=== PATIENT | female | born 1965 | race Caucasian/White ===

== ENCOUNTER → 2017-11-05 14:15 | Outpatient (CLI) | payer OTHER, SELFPAY ==
[2017-11-05 17:00] LABS: Absolute Lymphocyte Count 1.21 X10^3/ul (0.83-4.51); Absolute Neutrophil Count 2.3 X10^3/uL (2.0-7.7); Basophil# 0.02 X10^3/uL; Basophil% 0.5 % (0-1); Eosinophil# 0.19 X10^3/uL; Eosinophils% 4.8 % (0-5); Hematocrit 38.9 % (37-47); Hemoglobin 13.1 g/dl (12.0-15.0); Lymphocyte # 1.21 X10^3/ul (4.0); Lymphocyte % 30.4 % (19-41); Mean Corp Hgb Conc 33.7 g/gl (32-36); Mean Corpuscular Hgb 29.5 pg (27.0-32.0); Mean Corpuscular Volume 87.6 fL (81-99); Mean Platelet Vol. 10.4 fl (6.2-12.0); Monocyte# 0.26 X10^3/uL; Monocyte% 6.5 % (0-10); Neutrophil # 2.29 X10^3/uL (2.7-7.7); Neutrophil % 57.5 % (47-70); POSITIVE COUNT NO; POSITIVE DIFFERENTIAL NO; POSITIVE MORPHOLOGY NO; Platelet Count 242 K/mm3 (150-450); RBC Distribution Width CV 13.8 % (11.6-14.6); RBC Distribution Width SD 44.3 fl (35.1-43.9); Red Blood Count 4.44 M/mm3 (4.2-5.4)
[2017-11-05 17:06] LABS: AST(SGOT) 19 U/L (15-37); Alanine Aminotransfer ALT/SGPT 26 U/L (13-56); Albumin, Serum 3.6 g/dL (3.2-5.0); Alkaline Phosphatase 57 U/L (45-117); Anion Gap 9 (5-15); BUN 13 mg/dL (7-18); BUN/Creat Ratio 17.4 RATIO (10-20); Calcium,Total 8.6 mg/dL (8.5-10.1); Chloride 104 mmol/L (98-107); Creatinine, Serum 0.75 mg/dL (0.55-1.02); EST Glomerular Filtration Rate 87 mL/min (>60); Est Glom Filt Rate - Afr Amer 106 mL/min (>60); Globulin 3.5 g/dL (2.2-4.2); Glucose 123 mg/dL (74-106); Potassium 3.7 mmol/L (3.5-5.1); Protein, Total 7.1 g/dL (6.4-8.2); Sodium Level 142 mmol/L (136-145)
[2017-11-06 08:31] LABS: Vitamin D,25 Hydroxy 41.1 ng/mL (29.95-100.01)
== END ==
PROVIDERS: Visit Provider Family Medicine Geriatric Medicine
DX: E55.9 Vitamin D deficiency, unspecified (principal); R53.83 Other fatigue
CPT/HCPCS: 36415; 80053; 82306; 84443; 85025

== ENCOUNTER → 2017-11-12 09:15 | Outpatient (CLI) | payer OTHER, SELFPAY ==
--- NOTE | 2017-11-12 09:23 | US_ITS ---
STUDY: ABDOMINAL ULTRASOUND - RIGHT UPPER QUADRANT REASON FOR VISIT: Female, 52 years old. Right upper quadrant pain especially after fatty meals. TECHNIQUE: Ultrasound evaluation of the right upper quadrant was performed with real-time and static wood-scale imaging. TECHNICAL QUALITY: Adequate. COMPARISON: None. FINDINGS: Liver: The liver measures 16.5 cm. There is normal echogenicity of the liver. The bile ducts are within normal limits. There is hepatic color flow. The direction of portal flow is hepatopetal. There is no demonstrated mass lesion. Gallbladder: Normal distended gallbladder. The gallbladder wall measures 1.9 mm. Normal. There is a negative sonographic Gray's sign. There appears to be very minimal fluid adjacent to the gallbladder. There are no gallstones. Tiny gallbladder wall polyp measuring approximately 2.6 mm. Common Bile Duct (C.B.D.): The common bile duct measures 2.1 mm. Pancreas: Normal size of the head, body and tail of the pancreas. There is normal echogenicity of the pancreas. There is no demonstrated pancreatic mass or cyst. Right Kidney: Normal size of the right kidney. The right kidney measures 10.8 cm. Normal renal cortex. The right cortex measures 1.5 cm. There is no demonstrated renal mass or cyst. There is very slight ectasia of the right renal pelvis and proximal ureter. Nonspecific. US/Abdomen Limited IMPRESSION: Small gallbladder wall polyp. There appears to be very minimal pericholecystic fluid. There is no gallbladder wall thickening and the sonographic Gray sign is negative. Acute cholecystitis is not suspected. These features may reflect mild chronic cholecystitis. Normal intrahepatic biliary tree and common bile duct. Mild ectasia of the right renal pelvis and proximal ureter is nonspecific. This may merely reflect urine bolus at the time of the study. There is no visible urinary calculus. Electronically Signed: Evgeny Dowell, at 11:54 EDT Tel , Service support ,
== END ==
PROVIDERS: Family Provider Family Medicine Geriatric Medicine; PCP Family Medicine Geriatric Medicine; Visit Provider Family Medicine Geriatric Medicine
DX: R10.9 Unspecified abdominal pain (principal)
CPT/HCPCS: 76705

== ENCOUNTER 2017-12-01 06:40 | Day surgery (SDC) | payer SELFPAY, OTHER ==
[2017-12-01] VITALS (9 sets, daily range): BP systolic 118–131; BP diastolic 65–81; PULSE 65–77; RESP 14–16; TEMP 36.1–36.6; O2SAT 93–95; BMI 31.0
--- NOTE | 2017-12-01 06:56 | EKG12_ITS ---
Test Reason : PRE OP Blood Pressure : / mmHG Vent. Rate : 064 BPM Atrial Rate : 064 BPM P-R Int : 170 ms QRS Dur : 094 ms QT Int : 398 ms P-R-T Axes : 015 017 003 degrees QTc Int : 410 ms Normal sinus rhythm Normal ECG Confirmed by KALINA DIXON, LORRIE ([id number]), book or script editor PRIYA REID ([id number]) on 12/03/2017 2:35:25 PM Referred By: Glen Asher Confirmed By:LORRIE GILMAN MD
--- NOTE | 2017-12-01 07:30 | RAD_ITS ---
CLINICAL HISTORY: Female, 52 years old. Right upper quadrant pain. PROCEDURE: CHOLANGIOGRAM - INTRAOPERATIVE Placement of the catheter and the procedure were performed by: Surgeon Glen Asher M.D. TECHNIQUE: Fluoroscopy was provided by Department of Radiology with supervision, direction review of the surgeon, who was present in the room time of the procedure. Radiologist Not present intraoperatively. FLUOROSCOPY TIME (if supplied): (0:12) Dose: 3.67 mGy IMAGES: 56 (cine imaging) FINDINGS: Imaging shows identified contrast filling the cystic duct and partially filling the biliary system and duodenum without obvious filling defect to suggest choledocholithiasis or extravasation of contrast noted. Normal appearing tapering with smooth margins is seen of the distal CBD to the ampulla. No filling of the pancreatic duct is seen. Please see Surgeon's operative note for details. RAD/Cholangiogram/ O R,Initial IMPRESSION: Please see Surgeon's operative note for details. Electronically Signed: Rachid Jacob, at 8:44 EDT Tel , Service support ,
--- NOTE | 2017-12-01 08:00 | GALL_PTH ---
PATIENT: NOAM LANDIS LOC: [facility] [place] U#:[id number] AGE/SX: 52/F ROOM: RE12/01/[address]: Dr. Glen Asher MD : [id number] BED: DIS: 12/01/2017 SPEC #: [id number] RECD: 12/01/17 10:14 STATUS: RUBI DAYSI #: [id number] MANSOOR: 12/01/17 08:[address]: Glen Asher DEPT: SURGICAL PATHOLOGY RECD BY: Evgeny Solis ENTERED: 12/01/17 13:30 SP TYPE: DEANNA ORLANDO DR: Dr. Jasen Kaur MD Tissues: Gallbladder, NOS Procedures: Surgery Specimen Level III HEADER OPERATION: Laparoscopic cholecystectomy with IOC PRE-OP DIAGNOSIS: Biliary colic TISSUE SUBMITTED: Gallbladder MICROSCOPIC DIAGNOSIS Gallbladder, cholecystectomy: Chronic cholecystitis. AM:ana cristina 12/02/17 MICROSCOPIC DESCRIPTION Slides are reviewed. GROSS DESCRIPTION Received is one container labeled with the patient's name and designated gallbladder. The specimen consists of a gallbladder measuring 8.5 cm in length and up to 3.5 cm in diameter. The external surface is pink-cazares, smooth and glistening for the most part. Focally it is granular, hemorrhagic and contains cautery artifact. The gallbladder contains green-yellow mucoid bile. No stones are identified in the container or in the gallbladder. The mucosa is bile-stained and without any mass lesions. The gallbladder wall measures up to 0.2 cm in thickness. [employer] sections from the gallbladder and the cystic duct are submitted in one cassette. / SJ:rg 12/01/17 TC:3 CPT: 53063
--- NOTE | 2017-12-01 08:00 | DCINST_ITS ---
Discharge Diet: Light diet - advance as tolerated Discharge Activity: Return to Normal Activity, May Not Drive - for 2-3 days or while taking narcotic pain medicataions., - - Do not drive, work heavy equipment or sign legal documents for 24 hours. May shower in (days): 1 - with the bandage in place. Additional Activity Instructions:: Pain medication may cause nausea. You should typically eat light foods as you take your pain medications. Pain medication may also cause constipation. If this is a problem for you, please discuss with your doctor. Call your doctor if your incision/area has: Continuous Slow Oozing, Sudden Increased Bleeding, Increased Pain/ Swelling, Increased Redness, Foul Smelling Discharge, Fever of 101 or Higher Call your doctor if you observe: Fever of 101 or Higher Suture Line Care: Avoid Pulling/Pushing, Avoid Pinching/Bending Additional Dressing/Incision Instructions:: Leave operative bandaids on for 2 days. When you remove dressing, leave Steri-Strips on until your follow-up appointment, or until the Steri-Strips fall off on their own. Allergies/Adverse Reactions: Allergies No Known Allergies Allergy (Unverified 11/25/17 09:26) Medications to take at Discharge Calcium Carbonate [Calcium] 600 mg PO DAILY 11/30/17 Multivitamin [Multiple Vitamins] 1 each PO DAILY 11/30/17 Vitamin B Complex 1 each PO DAILY 11/30/17 traMADol [Ultram] 50 mg PO Q4H PRN PRN 4 Days #20 tablet 12/01/17 The following prescriptions were given: traMADol [Ultram] 50 mg PO Q4H PRN PRN 4 Days #20 tablet PRN Reason: Pain Primary Care Physician: Jasen Kaur Chi, MD [Primary Care Provider] - Test Results: Test results from this visit will be discussed in further detail at your follow- up appointment, if applicable. Please Follow Up With: Glen Asher MD When: Please call to schedule 2 week follow up appointment. [phone]
[2017-12-01] MEDS: Bupiv/Epi 0.5% Mpf 30 ML Vial (09:09)
--- NOTE | 2017-12-01 09:13 | OP.PCM_ITS ---
Problem List (1) Biliary dyskinesia Status: Acute Report of Operation Date of Procedure: 12/01/17 Pre-Operative Diagnosis: Biliary dyskinesia Post-Operative Diagnosis: Same Surgery/Procedure Performed:: Laparoscopic cholecystectomy with cholangiogram Specimen's removed: Gallbladder Description of Procedure: After obtaining informed consent patient was brought back to the operating room. General anesthesia was induced. The abdomen was prepped and draped in usual sterile fashion. A small midline incision was made superior to the umbilicus and deepened to the level of fascia. A small hernia was encountered from her infraumbilical midline incision. This was used to enter the abdomen. Finger sweep was performed and the Navarro trocar was placed into the abdomen. The balloon was inflated. The abdomen was inflated to 15 mmHg. Next a camera was introduced into the abdomen and the abdomen was inspected. The patient had dense adhesions from the umbilicus downward at the site of her midline incision. These were sharply taken down with cautery scissors. Next under direct visualization three 5-mm ports were placed one subxiphoid and 2 subcostal. Next the gallbladder was elevated and retracted toward the right shoulder. The peritoneum was stripped from the gallbladder. The infundibulum was located and retracted laterally. Next the triangle of Calot was dissected and the cystic duct and cystic artery were identified. Cholangiograms were performed. The Yung catheter was used to clamp across the infundibulum and the needle was inserted into the gallbladder. Under fluoroscopy contrast was instilled into the gallbladder and the common duct, cystic duct as well as proximal hepatic ducts were identified. There was good filling of the duodenum. There were no filling defects noted in the common bile duct. The clamp was removed as well as the needle and the infundibulum was grasped once more. Three hemolock clips were placed across the cystic duct. The cystic duct was then divided leaving 2 clips on the stump. The cystic artery was clipped and divided in the same fashion. The hook cautery was then used to take the gallbladder off of the gallbladder bed. Hemostasis was obtained. Gallbladder fossa was irrigated and no active bleeding or bile leakage was noted. Next the camera switched to a 5 mm camera and introduced in the subxiphoid port. An Endopouch bag was placed through the umbilical port and the gallbladder was placed into it. The gallbladder was then removed through the umbilical incision. The camera was the n reinserted through the umbilical port. The gallbladder fossa was inspected once more and noted to be hemostatic with no leaking bile. The abdomen was suctioned dry the 5 mm ports were removed under direct visualization. The umbilical port was then removed and the air was removed from the abdomen. Next using an 0 Vicryl suture the umbilical fascia was closed in a [id number] fashion. The umbilical port site was irrigated local anesthetic was administered to all the incisions. All the incisions were closed subcuticular 4-0 Monocryl sutures followed by Steri-Strips and dressings. The patient was awoken and taken to PACU in stable condition. - Admit VTE Documentation VTE Mechan Device Prophylaxis: SCD's
== END 2017-12-01 13:45 | disposition home or self-care (01) ==
LOC: SDC 06:41 → AC 06:42
PROVIDERS: Family Provider Family Medicine Geriatric Medicine; PCP Family Medicine Geriatric Medicine; Referring Provider Surgery; Visit Provider Surgery
PROC: (CPT 47610; principal; 2017-12-01 07:40)
DX: K80.44 Calculus of bile duct with chronic cholecystitis without obstruction (principal); K82.8 Other specified diseases of gallbladder
CPT/HCPCS: 47563; 74300; 76000; 88304; 93005; J7120; J2405